=== PATIENT | female | born 1955 | race Caucasian/White ===

== ENCOUNTER → 2020-07-26 | Outpatient (CLI) | payer BC ==
[~2020-07-26] MED LIST: CETI10TA76 PO; ESTR0.5T PO; LOSA50TA2 PO; NAPR220C2 PO; OMEP20TA62 PO; TRAM50TA2 PO
== END | disposition home or self-care (01) ==
LOC: STAR 15:30
PROVIDERS: ATTEND Anesthesiology
DX: Z01.812 Encounter for preprocedural laboratory examination (principal); Z20.828 Contact with and (suspected) exposure to other viral communicable diseases
CPT/HCPCS: 36415; 87635